=== PATIENT | male | born 1980 | race Caucasian/White ===

== ENCOUNTER → 2019-07-11 10:55 | Outpatient (CLI) | payer OTHER, SELFPAY ==
--- NOTE | 2019-07-11 12:22 | DIET.PN ---
DIABETES Nutrition Initial Assessment:? ASSESS:?? 39 yom with recent DX of type 2 diabetes. Reports strong family hx, however he was just DX 6 mo ago. Admits to eating a diet high in refined CHO and sugar sweetened beverages. Generally consumes 2-3 54oz sodas per day, 2-3 monster energy drinks and will frequently snack on candy while working. reports he can drink a gallon of milk in 1-2 days. Since DX he has cut out regular soda and energy drinks replacing with 1-2 diet sodas or sugar free drinks per day. He does not have a glucometer and has not been monitoring BG. ? LABS: Per pt report:? A1c: 10.9% (up from 10.2 in January) eA mg/dL Chol: 206 LDL: 142 HDL: 47 Tri MEDS:?? metformin 1000mg a.m. 500mg p.m. (plan to increase to 1000 m.g. BID) DIET: Per 24-hour recall:? B: [employer] breakfast sandwich x2 L: [employer] or 2 corn dogs D: Chicken or salmon, salad or cooked veggies Weight: 355 lb Exercise:? None NUTRITION DX 1. Altered Nutrition related labs related to impaired glucose metabolism, lack of previous exposure to accurate nutrition information as evidenced by pt report, dx of diabetes, previous diet high in refined carbohydrates.? INTERVENTION(s): 1. Discussed pathophysiology of diabetes. Reviewed A1c and its correlation to blood glucose numbers. Discussed recommended BG ranges. 2. Discussed importance of self-monitoring, how often, and when to check. Will provide demonstration on use of glucometer at follow up appointment. 3. Reviewed hyper/hypoglycemia and treatment. 4. Reviewed safe disposal of equipment (strip/lancets/insulin needles). 5. Discussed impact of nutrition/diet on blood sugar control.? Discussed fed versus non-fed state.?? 6. Discussed the effect of carbohydrates/protein/fat on blood sugar control.? Stressed importance of consistent carbohydrate intake at each meal and provided instructions for recommended servings/portions of carbohydrates/protein per meal. Provided pt with educational material. 7. Reviewed carbohydrate counting and measuring carbohydrate content via serving sizes and reading nutrition labels.? Provided handouts.?? 8. Discussed the difference between simple versus complex carbohydrates and the effect of fiber on blood sugar control.? Discussed various methods to increase fiber content in diet. 9. Stressed importance of meal timing and not going >4-5 hours between meals. Encouraged adding protein to each meal to support glucose control. Provided list of protein foods. Discussed best protein options for heart health and to alleviate hunger. Patient agreeable. 10. Discussed healthy weight loss through diet and exercise to increase lean muscle mass.? Will discuss further at future appointment. MONITOR/EVALUATE: Anticipate good compliance.? Nutrition follow up schedule for 1 mo to review BG, weight, food record and discuss protein/fat. Will contact provider for glucometer RX.
== END ==
PROVIDERS: Family Provider Family Medicine; PCP Family Medicine; Visit Provider Family Medicine
DX: E11.9 Type 2 diabetes mellitus without complications (principal)
CPT/HCPCS: 97802

== ENCOUNTER → 2019-08-07 11:51 | Outpatient (CLI) | payer OTHER, SELFPAY ==
--- NOTE | 2019-08-07 14:17 | DIET.PN ---
Dietary Progress Note Assessment: Mr. Marcum was seen for his 1st f/u for type 2 diabetes. He has been monitoring his BG for 1 week 1-2 times/day. He admits it has been challenging to monitor post-prandial BG as well as follow the nutrition guidelines discussed w/ his work schedule and recent life events. He is states he has cut out all sugar sweetened beverages including sodas and energy drinks, he has discontinued snacking on bite size candies throughout the day and purchasing fastfood/convenient store food for lunch. He continues to decrease his milk intake and is trying to drink a gallon of water each day. States his has been very supportive and has been including a vegetable with dinner and began purchasing healthier microwaveable dishes for lunch. He is trying to prepare meals at home rather than eating out for breakfast. He is a little frustrated with the last weeks BG readings, but states he has been under an abnormal amount of stress with some financial issues and an unplanned animal surgery. Labs: [id number] PP: 345 Wt: 355 Diet: B: cereal w/ milk L: Le[employer]isine or sandwich from home D: [place] helper, salad Nutrition Diagnosis: Altered nutrition related labs r/t impaired glucose metabolism, lack of previous exposure to accurate nutrition information aeb pt report, dx of diabetes, previous diet high in refined carbs. Interventions: 1. Reviewed blood sugar log and implications/reasons for elevated/decreased blood sugar.? Pt with good understanding.? 2. Reviewed carbohydrate counting and importance of consistent carbohydrate intake.? 3. Reviewed meal intake and importance of balanced meals (rambo to prevent overeating). Discussed adding protein to breakfast meal (HB egg, PB) to support glucose control. ??? 4. Provided information on fat/protein intake and ways to limit saturated fat. 5. Encourage monitoring fasting and evening blood glucose. Demonstrated how to check blood glucose with new monitor. Goals: Pt will aim to drink 1 gallon of water each day, limiting diet beverages. Pt will include protein with breakfast including 1 HB egg, deli meat, or peanut butter. Pt will decrease milk intake to 2- 8oz glasses per day. Monitoring/Evaluations: F/U scheduled for 1 month to review BG, food record, weight.
== END ==
PROVIDERS: PCP Family Medicine; Visit Provider Family Medicine
DX: E11.9 Type 2 diabetes mellitus without complications (principal)
CPT/HCPCS: 97803